=== PATIENT | female | born 1940 | race Caucasian/White ===

== ENCOUNTER 2017-07-13 06:17 | Day surgery (SDC) | payer MEDICARE, OTHER ==
[~2017-07-13 06:17] MED LIST: CARAFATE 1GM TAB1 GM PO; CARLSON VITAM2000 IU PO; GLUCOSAMINE500 MG; LOSARTAN POTASS50 MG PO; MACROBID 100MG100 MG; PRILOSEC20 MG PO; PROAIR HFA0.09 MG/AC; REGLAN10 M1 PO; SINGULAIR 10 MG10 MG PO; SYMBICORT 10.10.2 M1 IH; VITAMIN C500 M3 PO; ZYRTEC 10MG TAB10 MG PO
--- NOTE | 2017-07-13 08:16 | Operative Note ---
Upper GI Endoscopy Procedure date: 07/13/17 Date of : 42 Procedure:Upper GI Endoscopy Esophagogastroduodenoscopy with cold biopsies Indications: Mrs. Durant is a 76-year-old female with long-standing dyspepsia and bloating. The patient has a history of IBS. She is on pantoprazole and domperidone. She also is on a fiber bowel regimen. She had a colonoscopy in October 2016 at which time 5 polyps (tubular adenomas 5) were removed. She also has diverticulosis. Her cramps, diarrhea and bloating resolved. She is on fiber gas 3 times a day and strict low residue diet. The patient does report epigastric discomfort, burping, nausea and reflux. She has had increased hoarseness and frequent clearance of the throat. Performing Provider: Tom Duffy MD Referring Provider: Kobi Medellin M.D. Sedation: MAC sedation Procedure: Prior to the procedure, a history and physical exam was performed, and patients medications and allergies were reviewed. The risks and benefits of the procedure and the sedation options and risks were discussed with the patient. All questions were answered and informed consent was obtained. The patient was brought to the procedure room. Patient identification and proposed procedure were verified by the physician and the nurse. The patient was placed in a left lateral decubitus position and the scope was passed under direct vision. Throughout the procedure, the patient's blood pressure, pulse, and oxygen saturations were monitored continuously. The endoscope was introduced through the mouth, and advanced to the second part of duodenum. The upper GI endoscopy was accomplished without difficulty. The patient tolerated the procedure well. Findings: The scope was passed directly into the upper esophagus and advanced to the third portion of the duodenum. The post bulbar duodenum and duodenal bulb were normal with normal mucosa and conniventes. The scope was withdrawn through a normal duodenal bulb and pylorus into the stomach. There was moderate bile reflux with linear erythema of the antrum and body consistent with linear reactive gastritis. The remainder of the antrum, body and fundus of the stomach were grossly normal. Upon retroflexion there was no hiatal hernia. 2 biopsies were taken in the antrum and along the lesser curvature for histology. The scope was then withdrawn into the esophagus. There was no evidence of reflux esophagitis or Guthrie's. There were tertiary contractions with evidence of mild esophageal dysmotility. The remainder of the esophageal mucosa was normal. Immediate complications: None EBL (ml): 0 Impression: 1. Nonerosive gastroesophageal reflux disease with mild esophageal dysmotility 2. Bile reflux with linear reactive gastritis Recommendations: I do feel that the patient has dysmotility type dyspepsia and functional gastroesophageal reflux disease. I would continue the dietary measures, fiber bowel regimen (MiraLAX plus Metamucil) twice a day, domperidone and pantoprazole. I would consider adding erythromycin as a promotility agent. I will follow up the biopsies. at [id number]
[2017-07-13 09:07] VITALS: BP 128/62
== END 2017-07-13 08:55 | disposition home or self-care (01) ==
LOC: SDC 06:17
PROVIDERS: Internal Medicine Gastroenterology
PROC: 0DB78ZX Excision of Stomach, Pylorus, Via Natural or Artificial Opening Endoscopic, Diagnostic (ICD-10-PCS; 2017-07-13)
PROC: 0DB68ZX Excision of Stomach, Via Natural or Artificial Opening Endoscopic, Diagnostic (ICD-10-PCS; principal; 2017-07-13 07:30)
DX: R10.13 Epigastric pain (principal); K29.50 Unspecified chronic gastritis without bleeding; K21.9 Gastro-esophageal reflux disease without esophagitis; K22.4 Dyskinesia of esophagus; K58.9 Irritable bowel syndrome, unspecified; Z86.010 Personal history of colon polyps; K57.90 Diverticulosis of intestine, part unspecified, without perforation or abscess without bleeding; R49.0 Dysphonia

== ENCOUNTER → 2017-08-18 | Outpatient (CLI) | payer MEDICARE, OTHER | LOC: RAD 14:45 | DX: R60.9 Edema, unspecified (principal) ==